=== PATIENT | male | born 1945 | race Two or more races ===

== ENCOUNTER 2021-05-13 13:53 | Emergency (ER) | payer OTHER ==
[~2021-05-13] VITALS: Ht 188 cm; Wt 93.4 kg
[2021-05-13] MEDS ORDERED: SYNTHROID125 MCG PO (14:57)
[2021-05-13] MEDS ORDERED: METFORMIN HCL1000 MG (14:58)
== END 2021-05-13 18:05 | disposition home or self-care (01) ==
LOC: ER 13:53
DX: N39.0 Urinary tract infection, site not specified (principal); N40.1 Benign prostatic hyperplasia with lower urinary tract symptoms; R33.8 Other retention of urine

== ENCOUNTER 2022-02-23 23:59 | Emergency (ER) | payer OTHER ==
[~2022-02-23] VITALS: Ht 188 cm; Wt 98.4 kg
[~2022-02-23 23:59] MED LIST: METFORMIN HCL1000 MG; SYNTHROID125 MCG PO
[2022-02-24] MEDS ORDERED: DICLOFENAC SOD100 GM TOP (00:13)
[2022-02-24] MEDS ORDERED: FAMOTIDINE20 MG PO (00:13)
[2022-02-24] MEDS ORDERED: ENALAPRIL MALEA10 MG PO (00:13)
[2022-02-24] MEDS ORDERED: HYDROCHLOROTHIA25 MG PO (00:14)
[2022-02-24] MEDS ORDERED: ST. JOSEPH ASPI81 M2 PO (00:14)
[2022-02-24] MEDS ORDERED: SIMVASTATIN40 MG PO (00:14)
[2022-02-24] MEDS ORDERED: VERELAN240 MG (00:15)
[2022-02-24] MEDS ORDERED: CEPHALEXIN500 MG PO (01:03)
== END 2022-02-24 01:06 ==
LOC: ER 23:59
DX: S60.511A Abrasion of right hand, initial encounter (principal); W25.XXXA Contact with sharp glass, initial encounter; Y93.89 Activity, other specified; Y92.010 Kitchen of single-family (private) house as the place of occurrence of the external cause; Y99.9 Unspecified external cause status; E11.9 Type 2 diabetes mellitus without complications; Z79.84 Long term (current) use of oral hypoglycemic drugs; I10 Essential (primary) hypertension